=== PATIENT | female | born 1940 | race Caucasian/White ===

== ENCOUNTER → 2019-08-09 | Outpatient (CLI) | payer OTHER ==
[~2019-08-09] MED LIST: AMITRIPTYLINE H50 M2 PO; B12INJ; CLARITIN10 MG; DILTIAZEM 24HR240 M2 PO; FISH OIL500 MG; GLUCOPHAGE500 MG PO; LASIX 20 MG TAB20 MG PO; MAVIK4 MG PO; MOBIC15 MG PO; MULTIVITAMINS1 EAC7; NASONEX17 GM; NEXIUM 40 MG CA40 M1 PO; NORCO 5-325 TA1 EACH PO; SERTRALINE HCL50 MG PO; SINGULAIR 10 MG10 M1 PO; STOOL SOFTENER100 MG PO; SYMBICORT160 MCG/4. INH; ULTRACET TABLET1 TAB PO; VENTOLIN HFA 1818 GM; VESICARE 5 MG TA5 MG PO; ZETIA10 MG PO
== END ==
LOC: SJCVC 12:57 → SJCVCIMAG 12:57
PROVIDERS: ATTEND Internal Medicine Cardiovascular Disease
DX: I08.0 Rheumatic disorders of both mitral and aortic valves (principal); I11.9 Hypertensive heart disease without heart failure; I65.23 Occlusion and stenosis of bilateral carotid arteries; I25.10 Atherosclerotic heart disease of native coronary artery without angina pectoris; E78.00 Pure hypercholesterolemia, unspecified; E11.9 Type 2 diabetes mellitus without complications

== ENCOUNTER → 2020-08-14 | Outpatient (CLI) | payer OTHER | LOC: SJCVC 10:59 | PROVIDERS: ATTEND Internal Medicine Cardiovascular Disease | DX: R94.31 Abnormal electrocardiogram [ECG] [EKG] (principal); I11.9 Hypertensive heart disease without heart failure; I25.10 Atherosclerotic heart disease of native coronary artery without angina pectoris; E78.00 Pure hypercholesterolemia, unspecified; I35.0 Nonrheumatic aortic (valve) stenosis; I65.23 Occlusion and stenosis of bilateral carotid arteries; E78.5 Hyperlipidemia, unspecified; E03.9 Hypothyroidism, unspecified; E11.42 Type 2 diabetes mellitus with diabetic polyneuropathy; Z79.899 Other long term (current) drug therapy; Z87.891 Personal history of nicotine dependence; Z72.89 Other problems related to lifestyle; Z88.1 Allergy status to other antibiotic agents; Z88.8 Allergy status to other drugs, medicaments and biological substances; Z88.0 Allergy status to penicillin; Z88.5 Allergy status to narcotic agent ==

== ENCOUNTER → 2020-11-27 | Outpatient (CLI) | payer OTHER | LOC: SJCVCIMAG 11:23 | PROVIDERS: ATTEND Internal Medicine Cardiovascular Disease | DX: R94.31 Abnormal electrocardiogram [ECG] [EKG] (principal); I35.0 Nonrheumatic aortic (valve) stenosis; I25.10 Atherosclerotic heart disease of native coronary artery without angina pectoris; I10 Essential (primary) hypertension; E78.00 Pure hypercholesterolemia, unspecified; E11.9 Type 2 diabetes mellitus without complications; I65.23 Occlusion and stenosis of bilateral carotid arteries; J45.909 Unspecified asthma, uncomplicated; F32.9 Major depressive disorder, single episode, unspecified; E03.9 Hypothyroidism, unspecified; Z87.891 Personal history of nicotine dependence; Z72.89 Other problems related to lifestyle; Z79.899 Other long term (current) drug therapy; Z88.2 Allergy status to sulfonamides; Z88.5 Allergy status to narcotic agent; Z88.1 Allergy status to other antibiotic agents; Z88.8 Allergy status to other drugs, medicaments and biological substances; Z91.014 Allergy to mammalian meats; Z91.09 Other allergy status, other than to drugs and biological substances ==